=== PATIENT | male | born 1965 | race Caucasian/White ===

== ENCOUNTER 2017-10-28 09:32 | Emergency (ER) | payer OTHER | END 2017-10-28 12:26 | disposition home or self-care (01) | LOC: FTE 09:32 | DX: K64.4 Residual hemorrhoidal skin tags (principal) | CPT/HCPCS: 99284; Z7502 ==

== ENCOUNTER 2018-04-03 10:03 | Emergency (ER) | payer OTHER | END 2018-04-03 11:06 | disposition home or self-care (01) | LOC: FTE 10:03 | DX: L30.9 Dermatitis, unspecified (principal) | CPT/HCPCS: 99284; Z7502 ==

== ENCOUNTER 2018-05-11 11:34 | Day surgery (SDC) | payer OTHER ==
[2018-05-11] MEDS ORDERED: MIDAZOLAM 1 MG/ML 2 ML INJ ×3 (14:09→14:10)
[2018-05-11] MEDS ORDERED: FENTAnyl 50 MCG/ML VIAL (14:10)
== END 2018-05-11 15:38 | disposition home or self-care (01) ==
LOC: GIL 11:34
DX: Z12.11 Encounter for screening for malignant neoplasm of colon (principal); K29.60 Other gastritis without bleeding; K25.9 Gastric ulcer, unspecified as acute or chronic, without hemorrhage or perforation; K64.8 Other hemorrhoids; K64.4 Residual hemorrhoidal skin tags; D12.2 Benign neoplasm of ascending colon; R10.9 Unspecified abdominal pain
CPT/HCPCS: 43239; 88305; 88312

== ENCOUNTER 2018-06-05 11:41 | Emergency (ER) | payer OTHER ==
[2018-06-05] MEDS: DIPHTH/TET/ACEL PERTUSS (ADULT) 0.5 ML VIAL IM* (12:47)
== END 2018-06-05 13:05 | disposition home or self-care (01) ==
LOC: FTE 11:41
DX: S61.230A Puncture wound without foreign body of right index finger without damage to nail, initial encounter (principal); W53.21XA Bitten by squirrel, initial encounter; Y92.830 Public park as the place of occurrence of the external cause; Z23 Encounter for immunization
CPT/HCPCS: 90471; 90715; 99283-25

== ENCOUNTER 2018-07-01 12:44 | Emergency (ER) | payer OTHER | END 2018-07-01 15:10 | disposition home or self-care (01) | LOC: FTE 12:44 | DX: S61.250A Open bite of right index finger without damage to nail, initial encounter (principal); W53.21XA Bitten by squirrel, initial encounter; Y92.9 Unspecified place or not applicable | CPT/HCPCS: 99284; Z7502 ==

== ENCOUNTER 2018-09-10 17:45 | Emergency (ER) | payer OTHER | END 2018-09-10 23:40 | disposition home or self-care (01) | LOC: FTE 17:45 | DX: J02.9 Acute pharyngitis, unspecified (principal) | CPT/HCPCS: 99283; Z7502 ==

== ENCOUNTER 2018-11-14 10:39 | Emergency (ER) | payer BC, OTHER ==
[2018-11-14 11:57] LABS: ADD MAN DIFF? NO
[2018-11-14] MEDS: SOD CHLORIDE 0.9% 1,000 ML IV (12:02)
[2018-11-14 12:08] LABS: BASOPHILS % 0.3 % (0.0-2.0); EOSINOPHILS % 0.2 % (0.0-7.0); HEMATOCRIT 47.6 % (42.0-52.0); LYMPHOCYTES # 1.8 10^3/ul (0.8-2.9); LYMPHOCYTES % 13.5 % (15.0-51.0); MEAN CORPUSCULAR HEMOGLOBIN 28.3 pg (29.0-33.0); MEAN CORPUSCULAR HGB CONC 33.6 g/dl (32.0-37.0); MEAN CORPUSCULAR VOLUME 84.1 fl (82.0-101.0); MEAN PLATELET VOLUME 9.3 fl (7.4-10.4); MONOCYTE # 1.3 10^3/ul (0.3-0.9); MONOCYTES % 9.8 % (0.0-11.0); NEUTROPHILS % 75.9 % (39.0-77.0); PLATELET COUNT 269 10^3/UL (140-415); RED BLOOD COUNT 5.66 10^6/ul (4.70-6.10); RED CELL DISTRIBUTION WIDTH 12.5 % (11.5-14.5)
[2018-11-14 12:08] LABS: WHITE BLOOD COUNT 13.2 10^3/ul (4.8-10.8)
[2018-11-14 12:20] LABS: ANION GAP 11 (5-13); BLOOD UREA NITROGEN 14 mg/dl (7-20); CALCIUM 9.6 mg/dl (8.4-10.2); CARBON DIOXIDE 23 mmol/L (21-31); CHLORIDE 106 mmol/L (97-110); CREATININE 0.78 mg/dl (0.61-1.24); Estimated GFR > 60 mL/min (>60); GLUCOSE 110 mg/dl (70-220); POTASSIUM 3.8 mmol/L (3.5-5.1); SODIUM 140 mmol/L (135-144)
[2018-11-14 13:54] LABS: B-TYPE NATRIURETIC PEPTIDE 46 PG/ML (0-125); TROPONIN-I < 0.012 ng/ml (0.000-0.120)
== END 2018-11-14 14:50 | disposition home or self-care (01) ==
LOC: E/R 10:39
DX: M54.6 Pain in thoracic spine (principal)
CPT/HCPCS: 36415; 71045; 80048; 83880; 84484; 85025; 93005; 99285-25

== ENCOUNTER → 2019-05-14 | Emergency (ER) | payer BC | END | disposition home or self-care (01) | LOC: FTE 10:44 | DX: J31.2 Chronic pharyngitis (principal); K21.9 Gastro-esophageal reflux disease without esophagitis | CPT/HCPCS: 99283; Z7502 ==